=== PATIENT | male | born 1950 | race African-American/Black ===

== ENCOUNTER 2021-07-19 22:39 | Emergency (ER) | payer OTHER ==
[2021-07-19 22:51] VITALS: BMI 22.3
[2021-07-19 23:38] LABS: BASO % 0.4 % (0-2.0); EOS % 1.7 % (0-4.5); HEMATOCRIT 28.4 % (35.4-49); HEMOGLOBIN 9.2 GM/dL (11.7-16.9); LYMPH % 51.1 % (8-40); MCH 27.5 pg (25.7-33.7); MCHC 32.2 g/dl (32.0-35.9); MEAN CELL VOLUME 85.2 fl (80-96); MEAN PLT VOLUME 9.9 fl (7.5-11.1); MONO % 6.6 % (3.8-10.2); NEUT % 40.2 % (42.8-82.8); PLATELET COUNT 160 10^3/uL (134-434); RBC 3.34 M/mm3 (4.00-5.60); RDW 14.4 % (11.9-15.9); WHITE BLOOD COUNT 7.2 K/mm3 (4.0-10.0)
[2021-07-19 23:46] LABS: INR 1.11 (0.83-1.09); PROTHROMBIN TIME (PATIENT) 12.8 SEC (9.7-13.0)
[2021-07-19 23:48] LABS: ACTIVATED PTT 31.6 SECONDS (25.2-36.5)
[2021-07-20 00:05] LABS: CALCIUM 8.9 mg/dL (8.5-10.1)
[2021-07-20 00:06] LABS: BLOOD UREA NITROGEN 12.6 mg/dL (7-18)
[2021-07-20 00:09] LABS: CREATININE 1.2 mg/dL (0.55-1.3)
[2021-07-20 00:10] LABS: BILIRUBIN,TOTAL 0.4 mg/dL (0.2-1)
[2021-07-20 00:11] LABS: TOT PROT 5.6 g/dl (6.4-8.2)
[2021-07-20 01:00] VITALS: BP 103/63
[2021-07-20 01:06] VITALS: PULSE 73
== END 2021-07-20 01:21 | disposition home or self-care (01) ==
LOC: JER 22:39
DX: K62.5 Hemorrhage of anus and rectum (principal)
CPT/HCPCS: 36415; 80053; 82272; 85025; 85610; 85730; 86850; 86900; 86901; 99283-25; C9803-CS; U0003; U0005

== ENCOUNTER 2021-07-25 12:19 | Observation (INO) | payer OTHER ==
[2021-07-25] MEDS ORDERED: PANTOPRAZOLE SODIUM 40 MG VIAL IVPUSH ONE (13:35)
[2021-07-25] MEDS ORDERED: PANTOPRAZOLE SODIUM 40 MG VIAL ONE (13:52)
[2021-07-25 14:11] LABS: BASO % 0.7 % (0-2.0); EOS % 2.6 % (0-4.5); HEMATOCRIT 22.1 % (35.4-49); HEMOGLOBIN 7.2 GM/dL (11.7-16.9); LYMPH % 39.4 % (8-40); MCH 27.6 pg (25.7-33.7); MCHC 32.6 g/dl (32.0-35.9); MEAN CELL VOLUME 84.5 fl (80-96); MEAN PLT VOLUME 8.7 fl (7.5-11.1); MONO % 9.3 % (3.8-10.2); PLATELET COUNT 278 10^3/uL (134-434); RBC 2.61 M/mm3 (4.00-5.60); RDW 14.4 % (11.9-15.9); WHITE BLOOD COUNT 4.5 K/mm3 (4.0-10.0)
[2021-07-25 14:42] LABS: CALCIUM 8.8 mg/dL (8.5-10.1)
[2021-07-25 14:43] LABS: ALBUMIN 3.3 g/dl (3.4-5.0); BLOOD UREA NITROGEN 14.3 mg/dL (7-18)
[2021-07-25 14:46] LABS: CREATININE 1.1 mg/dL (0.55-1.3)
[2021-07-25 14:48] LABS: BILIRUBIN,TOTAL 0.5 mg/dL (0.2-1); TOT PROT 6.2 g/dl (6.4-8.2)
[2021-07-25] MEDS ORDERED: SODIUM CHLORIDE 500 ML IV STA (21:04)
[2021-07-25] MEDS ORDERED: ALBUTEROL SO4 HFA INHALER IH PRN (21:09)
[2021-07-25] MEDS ORDERED: SODIUM CHLORIDE 1,000 ML IV SCH (21:30)
[2021-07-26 03:02] LABS: HEMATOCRIT 26.2 % (35.4-49); HEMOGLOBIN 8.8 GM/dL (11.7-16.9); MCH 27.8 pg (25.7-33.7); MCHC 33.5 g/dl (32.0-35.9); MEAN CELL VOLUME 82.9 fl (80-96); MEAN PLT VOLUME 8.2 fl (7.5-11.1); PLATELET COUNT 250 10^3/uL (134-434); RBC 3.16 M/mm3 (4.00-5.60); RDW 14.2 % (11.9-15.9); WHITE BLOOD COUNT 4.3 K/mm3 (4.0-10.0)
[2021-07-26 04:33] VITALS: BMI 20.8
[2021-07-26 07:56] LABS: HEMATOCRIT 25.6 % (35.4-49); HEMOGLOBIN 8.7 GM/dL (11.7-16.9); MCH 28.2 pg (25.7-33.7); MCHC 34.1 g/dl (32.0-35.9); MEAN CELL VOLUME 82.6 fl (80-96); MEAN PLT VOLUME 8.5 fl (7.5-11.1); PLATELET COUNT 242 10^3/uL (134-434); RDW 14.4 % (11.9-15.9); WHITE BLOOD COUNT 4.4 K/mm3 (4.0-10.0)
[2021-07-26 08:41] LABS: ALBUMIN 2.6 g/dl (3.4-5.0); BLOOD UREA NITROGEN 10.4 mg/dL (7-18); CALCIUM 8.7 mg/dL (8.5-10.1); MAGNESIUM 2.3 mg/dL (1.8-2.4)
[2021-07-26 08:44] LABS: CREATININE 0.9 mg/dL (0.55-1.3)
[2021-07-26 08:46] LABS: TOT PROT 5.2 g/dl (6.4-8.2)
[2021-07-26] MEDS ORDERED: SODIUM CHLORIDE 1,000 ML IV SCH (08:46)
[2021-07-26 08:47] LABS: BILIRUBIN,TOTAL 0.8 mg/dL (0.2-1)
[2021-07-26 09:34] LABS: ACTIVATED PTT 36.4 SECONDS (25.2-36.5); PROTHROMBIN TIME (PATIENT) 11.5 SEC (9.7-13.0)
[2021-07-26] MEDS ORDERED: PANTOPRAZOLE SODIUM 40 MG VIAL IVPUSH SCH (10:00)
[2021-07-26 10:20] VITALS: TEMP 98.5
[2021-07-26 14:00] VITALS: BP 117/64; PULSE 73
== END 2021-07-26 16:33 | disposition home or self-care (01) ==
LOC: JER 12:19 → INTOOBSV 15:42 → JERBED 15:42 → UNDOADMOB 15:42 → JERBED 22:04 → J6S 22:04 → JERBED 07-26 14:28 → J6S 07-26 14:28
PROVIDERS: ADMIT Internal Medicine; ATTEND Internal Medicine
PROC: 30233N1 Transfusion of Nonautologous Red Blood Cells into Peripheral Vein, Percutaneous Approach (ICD-10-PCS; principal; 2021-07-26)
PROC: 3E033GC Introduction of Other Therapeutic Substance into Peripheral Vein, Percutaneous Approach (ICD-10-PCS; 2021-07-26)
PROC: 3E0337Z Introduction of Electrolytic and Water Balance Substance into Peripheral Vein, Percutaneous Approach (ICD-10-PCS; 2021-07-26)
DX: D64.9 Anemia, unspecified (principal); K91.840 Postprocedural hemorrhage of a digestive system organ or structure following a digestive system procedure; N40.0 Benign prostatic hyperplasia without lower urinary tract symptoms; R06.02 Shortness of breath; R07.9 Chest pain, unspecified; J45.909 Unspecified asthma, uncomplicated; R79.9 Abnormal finding of blood chemistry, unspecified
CPT/HCPCS: 0241U-QW; 36415; 36430; 71045-TC-FY; 74174-TC; 80053; 82272; 83735; 84100; 84484; 85025; 85027; 85610; 85730; 86850; 86900; 86901; 86922; 87807; 93005; 93010; 96361; 96374; 96375; 99285-25; C9803-CS; G0378; P9058; Q9967; U0003; U0005

== ENCOUNTER 2022-07-02 12:49 | Emergency (ER) | payer OTHER ==
[2022-07-02 13:40] VITALS: RESP 18; BMI 22.3
[2022-07-02] MEDS ORDERED: MAG HYDROX/AL HYDROX/SIMETH -MYLANTA- ORAL SUSPENSION PO ONE (14:05)
[2022-07-02] MEDS ORDERED: FAMOTIDINE 20 MG/50 ML IVPB 20 MG in PREMIX 50 IVPB ONE (14:05)
[2022-07-02] MEDS ORDERED: MAG HYDROX/AL HYDROX/SIMETH 30 ML UNIT-DOSE CUP ONE (14:16)
[2022-07-02] MEDS ORDERED: FAMOTIDINE 20 MG/50 ML IVPB 20 MG/50 ML MG IVPB ONE (14:16)
[2022-07-02 15:48] LABS: BASO % 0.5 % (0-2.0); EOS % 1.3 % (0-4.5); HEMATOCRIT 39.1 % (35.4-49); HEMOGLOBIN 13.1 GM/dL (11.7-16.9); LYMPH % 45.8 % (8-40); MCH 27.7 pg (25.7-33.7); MCHC 33.6 g/dl (32.0-35.9); MEAN CELL VOLUME 82.3 fl (80-96); MEAN PLT VOLUME 9.8 fl (7.5-11.1); MONO % 7.4 % (3.8-10.2); PLATELET COUNT 238 10^3/uL (134-434); RBC 4.75 M/mm3 (4.00-5.60); RDW 13.8 % (11.9-15.9); WHITE BLOOD COUNT 3.6 K/mm3 (4.0-10.0)
[2022-07-02 16:09] LABS: ALBUMIN 3.4 g/dl (3.4-5.0); BLOOD UREA NITROGEN 12.5 mg/dL (7-18); CALCIUM 9.2 mg/dL (8.5-10.1)
[2022-07-02 16:13] LABS: BILIRUBIN,TOTAL 0.6 mg/dL (0.2-1)
[2022-07-02 16:14] LABS: TOT PROT 6.7 g/dl (6.4-8.2)
[2022-07-02 16:17] LABS: N-TERMINAL BNP 31.7 pg/ml (5-125)
[2022-07-02 17:08] VITALS: BP 132/85; PULSE 60; TEMP 98
== END 2022-07-02 17:08 | disposition home or self-care (01) ==
LOC: JERFT 12:49
PROC: 3E033GC Introduction of Other Therapeutic Substance into Peripheral Vein, Percutaneous Approach (ICD-10-PCS; principal; 2022-07-02)
DX: R07.89 Other chest pain (principal); R06.02 Shortness of breath; Z20.822 Contact with and (suspected) exposure to COVID-19
CPT/HCPCS: 0241U-QW; 36415; 71046-TC-FY; 80053; 83690; 83880; 84484; 85025; 93005; 93010; 99285-25